=== PATIENT | female | born 1960 | race Caucasian/White ===

== ENCOUNTER 2020-10-09 06:15 | Emergency (ER) | payer OTHER ==
[~2020-10-09] VITALS: Ht 157.5 cm; Wt 92.7 kg
[2020-10-09] MEDS ORDERED: FURO20TA2 (06:32)
[2020-10-09] MEDS ORDERED: PRIM50TA6 (06:32)
[2020-10-09] MEDS ORDERED: TRAM50TA2 (06:32)
[2020-10-09] MEDS ORDERED: MUPI2OI (06:32)
[2020-10-09] MEDS ORDERED: METF-838 (06:32)
[2020-10-09] MEDS ORDERED: LISI2.5T2 (06:32)
[2020-10-09] MEDS ORDERED: PHEN100C (06:32)
[2020-10-09] MEDS ORDERED: LEVO25TA5 (06:32)
[2020-10-09] MEDS ORDERED: GLIM4TAB5 (06:32)
[2020-10-09] MEDS ORDERED: ALEN70TA82 (06:32)
[2020-10-09] MEDS ORDERED: HYDR1CAP25 (06:32)
[2020-10-09] MEDS ORDERED: SERT50TA29 (06:32)
[2020-10-09] MEDS ORDERED: GABA600T4 (06:32)
[2020-10-09] MEDS ORDERED: TRUL0.5I (06:32)
[2020-10-09] MEDS ORDERED: SIMV10TA21 (06:32)
[2020-10-09] MEDS ORDERED: ASPI81TA26 (06:32)
[2020-10-09] MEDS ORDERED: FOLI1TAB11 (06:32)
[2020-10-09] MEDS ORDERED: ONDANSETRON 4MG/2ML VIAL IV ONE (07:30)
[2020-10-09] MEDS ORDERED: NS 1,000 ML IV SCH (07:30)
[2020-10-09] MEDS ORDERED: fentaNYL 100 MCG/2 ML INJECTION (J3010) IV PRN (07:30)
[2020-10-09 08:36] LABS: BASO # 0.1 10^3/uL (0.0-0.2); BASO % 0.4 % (0.0-1.0); EOS % 0.1 % (0.0-3.0); HEMATOCRIT 40.8 % (36.0-47.0); HEMOGLOBIN 13.1 g/dl (12.0-15.5); LYMPH # 3.4 10^3/uL (1.5-5.0); LYMPH % 25.1 % (24.0-44.0); MEAN CORPUSCULAR HEMOGLOBIN 31.2 pg (27.0-33.0); MEAN CORPUSCULAR HGB CONC 32.1 g/dl (32.0-36.5); MEAN CORPUSCULAR VOLUME 97.1 fl (80.0-96.0); MONO % 7.3 % (2.0-8.0); NEUTROPHILS # 9.1 10^3/uL (1.5-8.5); NEUTROPHILS % 66.8 % (36.0-66.0); WHITE BLOOD COUNT 13.7 10^3/uL (4.0-10.0)
[2020-10-09 08:59] LABS: ALBUMIN 3.1 GM/DL (3.2-5.2); ALT/SGPT 26 U/L (12-78); BILIRUBIN,DIRECT < 0.1 MG/DL (0.0-0.2); BILIRUBIN,TOTAL 0.1 MG/DL (0.2-1.0); BLOOD UREA NITROGEN 15 MG/DL (7-18); CALCIUM LEVEL 8.6 MG/DL (8.8-10.2); CARBON DIOXIDE LEVEL 27 MEQ/L (21-32); CHLORIDE LEVEL 106 MEQ/L (98-107); CREATININE FOR GFR 0.72 MG/DL (0.55-1.30); GLOMERULAR FILTRATION RATE > 60.0 (>45); GLUCOSE, FASTING 165 MG/DL (70-100); PHENYTOIN (DILANTIN) 6.6 UG/ML (10.0-20.0); POTASSIUM SERUM 5.4 MEQ/L (3.5-5.1); SODIUM LEVEL 138 MEQ/L (136-145); TOTAL PROTEIN 7.6 GM/DL (6.4-8.2)
[2020-10-09] MEDS ORDERED: ISOVUE-370 76% 100ML VIAL As Ordered ONE (09:10)
--- NOTE | 2020-10-09 09:43 | REP ---
INDICATION: trauma COMPARISON: None TECHNIQUE: Axial contrast enhanced images from the thoracic inlet to the upper abdomen using 100 ml Isovue 370 intravenous contrast material followed by CT of the abdomen and pelvis. Coronal and sagittal reformations obtained. This CT examination was performed using the following dose reduction techniques: Automated exposure control, adjustment of mA and/or kv according to the patient's size, and use of iterative reconstruction technique. FINDINGS: Lung muniz are essentially clear. Trace posterior basilar dependent atelectatic changes are suggested (right greater than left) no pulmonary parenchymal consolidation/contusion, pleural effusion, or pneumothorax. Mediastinum demonstrates normal thoracic aorta, pulmonary vasculature, and heart/pericardium. No evidence for mediastinal injury. No adenopathy. Surrounding musculoskeletal structures are intact and without evidence for injury. IMPRESSION: Normal contrast-enhanced chest CT. No acute mediastinal or pleuroparenchymal process. No evidence for acute trauma/injury. <Electronically signed by Ronny Addison > 10/09/20 0939
--- NOTE | 2020-10-09 09:46 | REP ---
INDICATION: trauma. COMPARISON: None TECHNIQUE: Axial contrast-enhanced images from the lung bases to the pubic symphysis using 100 cc Isovue 370 intravenous contrast material. Coronal and sagittal reformations obtained. This CT examination was performed using the following dose reduction techniques: Automated exposure control, adjustment of mA and/or kv according to the patient's size, and the use of iterative reconstruction technique. FINDINGS: No evidence for solid organ injury. Liver, spleen, pancreas, bilateral adrenal glands and kidneys are essentially normal. Prior cholecystectomy noted. The enteric system including stomach, small, and large bowel appears normal. No evidence for obstruction or acute inflammatory process. Scattered colonic diverticula noted without acute diverticulitis. Pelvis demonstrates normal bladder and age-appropriate uterus/adnexa. No ascites. No free air. No intraperitoneal or retroperitoneal adenopathy. Abdominal aorta and vasculature appear normal. Musculoskeletal structures are intact and without acute osseous abnormality. IMPRESSION: No acute abdominopelvic pathology appreciated. No evidence for acute trauma/injury. <Electronically signed by Ronny Addison > 10/09/20 0958
[2020-10-09 10:57] VITALS: BP 135/94
== END 2020-10-09 11:32 | disposition home or self-care (01) ==
LOC: M ED 06:15
DX: S22.31XA Fracture of one rib, right side, initial encounter for closed fracture (principal); W01.0XXA Fall on same level from slipping, tripping and stumbling without subsequent striking against object, initial encounter; Y92.9 Unspecified place or not applicable; Y93.9 Activity, unspecified; Y99.9 Unspecified external cause status; E11.9 Type 2 diabetes mellitus without complications; I10 Essential (primary) hypertension; Z88.6 Allergy status to analgesic agent; Z88.8 Allergy status to other drugs, medicaments and biological substances; Z79.899 Other long term (current) drug therapy
CPT/HCPCS: 36415; 71260; 74177; 80048; 80076; 80185; 85025; 93041; 94760; 96361; 96374; 96375; 99285; J2405; J3010; Q9967

== ENCOUNTER 2020-10-13 11:48 | Emergency (ER) | payer OTHER ==
[~2020-10-13] VITALS: Ht 157.5 cm; Wt 92.7 kg
[~2020-10-13 11:48] MED LIST: ALEN70TA82; ASPI81TA26; FOLI1TAB11; FURO20TA2; GABA600T4; GLIM4TAB5; HYDR1CAP25; LEVO25TA5; LISI2.5T2; METF-838; MUPI2OI; PHEN100C; PRIM50TA6; SERT50TA29; SIMV10TA21; TRAM50TA2; TRUL0.5I
[2020-10-13] MEDS ORDERED: PERCOCET 5MG/325MG TAB PO ONE ×2 (13:10→17:10)
[2020-10-13 13:42] LABS: BASO # 0.1 10^3/uL (0.0-0.2); BASO % 0.6 % (0.0-1.0); HEMATOCRIT 40.4 % (36.0-47.0); HEMOGLOBIN 12.9 g/dl (12.0-15.5); LYMPH # 2.1 10^3/uL (1.5-5.0); LYMPH % 24.5 % (24.0-44.0); MEAN CORPUSCULAR HEMOGLOBIN 30.4 pg (27.0-33.0); MEAN CORPUSCULAR HGB CONC 31.9 g/dl (32.0-36.5); MEAN CORPUSCULAR VOLUME 95.1 fl (80.0-96.0); MONO # 0.5 10^3/uL (0.0-0.8); MONO % 5.4 % (2.0-8.0); NEUTROPHILS # 5.8 10^3/uL (1.5-8.5); NEUTROPHILS % 69.3 % (36.0-66.0); PLATELET COUNT, AUTOMATED 311 10^3/uL (150-450); RED BLOOD COUNT 4.25 10^6/uL (4.00-5.40); WHITE BLOOD COUNT 8.4 10^3/uL (4.0-10.0)
[2020-10-13 14:00] LABS: ALT/SGPT 25 U/L (12-78); BILIRUBIN,TOTAL 0.1 MG/DL (0.2-1.0); BLOOD UREA NITROGEN 16 MG/DL (7-18); CALCIUM LEVEL 8.7 MG/DL (8.8-10.2); CARBON DIOXIDE LEVEL 28 MEQ/L (21-32); CHLORIDE LEVEL 106 MEQ/L (98-107); CREATININE FOR GFR 0.68 MG/DL (0.55-1.30); GLOMERULAR FILTRATION RATE > 60.0 (>45); GLUCOSE, FASTING 171 MG/DL (70-100); SODIUM LEVEL 138 MEQ/L (136-145); TOTAL PROTEIN 7.7 GM/DL (6.4-8.2)
--- NOTE | 2020-10-13 14:21 | REP ---
INDICATION: fell/pain. COMPARISON: Chest CT dated 10/09/2020. TECHNIQUE: Right ribs four views, PA chest single-view. FINDINGS: On the comparison CT there was a nondisplaced fracture of the right 5th rib anteriorly. This fracture is not demonstrated on plain films today. No other right rib fractures or other abnormalities are identified on the plain films today. PA chest: There is no pneumothorax, hemothorax or pulmonary contusion. Lung muniz are clear. Cardiac size is normal. IMPRESSION: Negative plain film study of the right ribs. The right 5th rib fracture identified the recent CT is not visible on plain films. PA chest is normal. <Electronically signed by Rajat Fraire > 10/13/20 [id number]
--- NOTE | 2020-10-13 15:28 | REP ---
INDICATION: fell/pain. COMPARISON: Chest, abdomen/pelvis CT dated 10/09/2020. TECHNIQUE: Multiple sonographic images of the abdominal right upper quadrant. FINDINGS: The pancreas is obscured by bowel gas. There is a cholecystectomy. There is no intrahepatic or extrahepatic biliary duct dilatation, the common biliary duct measures 2.8 mm in diameter. The hepatic parenchyma is homogeneous. There is no evidence of intrahepatic hematoma. The hepatic parenchyma is echogenic compatible with hepato steatosis. No para hepatic fluid collection is identified. However, a right pleural fluid collection is incidentally identified. The right kidney measures 9.0 x 4.6 x 4.0 cm and is in the low normal size range. There is no right renal calculus or hydronephrosis. There is no right renal solid or cystic mass. No pararenal fluid collection. IMPRESSION: A right pleural effusion is incidentally identified. No evidence of intrahepatic hematoma. The hepatic parenchyma is echogenic compatible with hepato steatosis. The right kidney is in the low normal size range but otherwise unremarkable. There is a cholecystectomy. No right upper quadrant free intraperitoneal fluid. <Electronically signed by Rajat Fraire > 10/13/20 1529
--- NOTE | 2020-10-13 16:19 | REP ---
INDICATION: right rib pain/sob. COMPARISON: Chest CT dated 10/09/2020 and right rib series performed earlier today. TECHNIQUE: Chest CT without IV contrast. FINDINGS: There is a nondisplaced fracture of the right 5th rib anteriorly, similar to the comparison CT. There is a small right pleural fluid collection as an interval change, possibly hemothorax. There is no pneumothorax. There is a pleural-based 8 mm lung nodule posteriorly in the right upper lobe on image 23, not optimally demonstrated on the comparison CT. This is a category 4A lung lesion and follow-up chest CT in 3 months is recommended for further evaluation. PET scan might also be considered. There is a 4 mm right lower lobe lung nodule on image 44. This is getting or a 2 lung nodule and can be followed up CT annually. There is an 8 mm pleural-based right middle lobe lung nodule on image 52. Follow-up chest CT in 3 months is recommended. PET scan might also be considered. There are no other lung nodules or masses. There is no mediastinal lymph node enlargement. Is no axillary lymphadenopathy. Hilar lymph node enlargement is insensitive in the absence of IV contrast. The unenhanced thoracic aorta is unremarkable. Cardiac size normal. There is no pericardial effusion. Upper abdomen:: There is a 12 mm ovoid soft tissue nodule anterior all medial to the dome of the liver within the mesenteric fat, possibly ectopic hepatic tissue. The visualized hepatic parenchyma is otherwise homogeneous and unremarkable. There are surgical clips in the gallbladder fossa. Pancreas and spleen are unremarkable except for splenic calcified granulomas. The adrenals are unremarkable. The visualized renal upper poles are unremarkable. IMPRESSION: There is a new small right pleural fluid collection has an interval change, possibly right hemothorax. Nondisplaced fracture of the right 5th rib anteriorly is again noted, unchanged. There are 3 lung nodules as described. The 2 larger nodules should be followed up by CT in 3 months. Additionally, consider PET scan. The smaller nodule can be followed up annually. Soft tissue nodule in the abdomen anterolateral to the hepatic dome may represent ectopic hepatic tissue. <Electronically signed by Rajat Fraire > 10/13/20 [id number]
[2020-10-13] MEDS ORDERED: PERC5TAB12 PO (17:24)
[2020-10-13 17:38] VITALS: BP 123/61
--- NOTE | 2020-10-16 19:24 | ED PDOC ---
Post-Departure Follow-Up ct chest [facility]ed [facility]dr slaughter for fu Omkar East MD Oct 16, 2020 19:24
== END 2020-10-13 17:52 | disposition home or self-care (01) ==
LOC: EDBD 11:48 → M ED 11:48
DX: S22.31XA Fracture of one rib, right side, initial encounter for closed fracture (principal); J94.2 Hemothorax; W19.XXXA Unspecified fall, initial encounter; Y92.9 Unspecified place or not applicable; Y93.9 Activity, unspecified; Y99.9 Unspecified external cause status; R91.8 Other nonspecific abnormal finding of lung field; J90 Pleural effusion, not elsewhere classified; K76.0 Fatty (change of) liver, not elsewhere classified; E11.21 Type 2 diabetes mellitus with diabetic nephropathy; K21.9 Gastro-esophageal reflux disease without esophagitis; E03.9 Hypothyroidism, unspecified; E78.5 Hyperlipidemia, unspecified; R51.9 Headache, unspecified; R56.9 Unspecified convulsions; F41.9 Anxiety disorder, unspecified; F33.9 Major depressive disorder, recurrent, unspecified; Z88.8 Allergy status to other drugs, medicaments and biological substances; Z79.899 Other long term (current) drug therapy; Z79.82 Long term (current) use of aspirin; Z79.84 Long term (current) use of oral hypoglycemic drugs

== ENCOUNTER → 2021-01-20 | Outpatient (CLI) | payer OTHER ==
[~2021-01-20] MED LIST changes: +PERC5TAB12 PO
[2021-01-20 13:26] LABS: BASO % 0.5 % (0.0-1.0); HEMATOCRIT 39.4 % (36.0-47.0); HEMOGLOBIN 12.6 g/dl (12.0-15.5); LYMPH # 2.9 10^3/uL (1.5-5.0); LYMPH % 35.5 % (24.0-44.0); MEAN CORPUSCULAR HEMOGLOBIN 30.8 pg (27.0-33.0); MEAN CORPUSCULAR VOLUME 96.3 fl (80.0-96.0); MONO # 0.6 10^3/uL (0.0-0.8); MONO % 7.7 % (2.0-8.0); NEUTROPHILS # 4.5 10^3/uL (1.5-8.5); NEUTROPHILS % 55.9 % (36.0-66.0); PLATELET COUNT, AUTOMATED 294 10^3/uL (150-450); RED BLOOD COUNT 4.09 10^6/uL (4.00-5.40)
[2021-01-20 14:01] LABS: ALBUMIN 3.4 GM/DL (3.2-5.2); ALT/SGPT 57 U/L (12-78); BILIRUBIN,TOTAL 0.2 MG/DL (0.2-1.0); BLOOD UREA NITROGEN 29 MG/DL (7-18); CALCIUM LEVEL 8.4 MG/DL (8.8-10.2); CARBON DIOXIDE LEVEL 28 MEQ/L (21-32); CHLORIDE LEVEL 105 MEQ/L (98-107); CHOLESTEROL LEVEL 182 MG/DL (<200); CHOLESTEROL RISK RATIO 2.192 (<5); CREATININE FOR GFR 0.82 MG/DL (0.55-1.30); GLOMERULAR FILTRATION RATE > 60.0 (>45); GLUCOSE, FASTING 159 MG/DL (70-100); HDL CHOLESTEROL 83 MG/DL (>40); LDL CHOLESTEROL 72 MG/DL (<100); NON-HDL-C 99 MG/DL; POTASSIUM SERUM 4.9 MEQ/L (3.5-5.1); SODIUM LEVEL 137 MEQ/L (136-145); TOTAL PROTEIN 7.8 GM/DL (6.4-8.2); TRIGLYCERIDES LEVEL 137 MG/DL (<150)
[2021-01-20 14:03] LABS: HEMOGLOBIN A1c 7.3 %
[2021-01-20 14:12] LABS: CREATININE, URINE 67.2 MG/DL; MALB URINE SIEMENS 12.2 MG/L; MAU/CREAT RATIO 18.1 MCG/MG (0.0-30.0)
== END ==
LOC: M PLALAB 11:08
PROVIDERS: ATTEND Student in an Organized Health Care Education/Training Program
DX: E11.69 Type 2 diabetes mellitus with other specified complication (principal); R56.9 Unspecified convulsions

== ENCOUNTER → 2021-04-11 | Outpatient (CLI) | payer OTHER ==
[~2021-04-11] MED LIST changes: -LISI2.5T2; +LISI2.5T9
--- NOTE | 2021-04-11 15:13 | DEXAMM ---
INDICATION: OSTEOPOROSIS UNSPEC. COMPARISON: None. TECHNIQUE: Bone density was measured using dual-energy x-ray absorptionmetry (DEXA). FINDINGS: AP SPINE L1-L4 BMD 1.006 g/cm2 Young Adult T-Score -1.5 Age Matched Z-Score -0.2. LT FEMUR, TOTAL BMD 0.612 g/cm2 Young Adult T-Score -3.1 Age Matched Z-Score -2.1. LT NECK BMD 0.583 g/cm2 Young Adult T-Score -3.3 Age Matched Z-Score -2.0. RT FEMUR, TOTAL BMD 0.701 g/cm2 Young Adult T-Score -2.4 Age Matched Z-Score -1.4. RT NECK BMD 0.611 g/cm2 Young Adult T-Score -3.1 Age Matched Z-Score -1.8. IMPRESSION: There is low bone density of the spine. There is osteoporosis of the left hip. There is osteoporosis of the right hip. FOLLOW-UP: Recommendation for the next bone density exam: 2 years. <Electronically signed by Azeem Coker > 04/11/21 0760
== END ==
LOC: M WHC 13:26
PROVIDERS: ATTEND Student in an Organized Health Care Education/Training Program
DX: M81.0 Age-related osteoporosis without current pathological fracture (principal)

== ENCOUNTER → 2021-04-28 | Outpatient (CLI) | payer OTHER ==
--- NOTE | 2021-04-28 10:24 | REP ---
INDICATION: INCIDENTAL LUNG NODULE COMPARISON: 10/14/2019 TECHNIQUE: Axial noncontrast images from the thoracic inlet to the upper abdomen with coronal and sagittal reformations. This CT examination was performed using the following dose reduction techniques: Automated exposure control, adjustment of mA and/or kv according to the patient's size, and use of iterative reconstruction technique. FINDINGS: Current evaluation demonstrates resolution of the right pleural effusion and healed right rib fracture. New findings include subtle scattered areas of patchy airspace disease (right greater than left) which are suspicious for an acute or resolving inflammatory process. The small subpleural nodule in the posterior aspect of the right upper lobe (image 22) remains stable while the smaller nodule within the periphery of the right lower lobe and subpleural anterior right upper lobe may be slightly obscured by adjacent patchy opacity or have resolved. A new 4 mm non solid density is also identified in the right apex (image 16). Correlation with physical examination and short-term follow-up to re-evaluation is suggested given the acute findings. Mediastinum is relatively normal/stable and small nonspecific mediastinal/right hilar lymph nodes are again identified. Thoracic aorta, pulmonary vasculature, and heart/pericardium are relatively normal for age. No cardiomegaly or pericardial effusion. Tracheobronchial tree is patent. Surrounding musculoskeletal structures are intact. IMPRESSION: 1. Current examination demonstrates very small patchy scattered opacities suspicious for an acute or resolving inflammatory process possibly obscuring 2 of the previously noted small nodules. There also appears to be a new 4 mm non solid nodular density in the right apex. Short-term 6 month follow-up examination is recommended. <Electronically signed by Ronny Addison > 04/28/21 [id number]
== END ==
LOC: M RAD 09:23
PROVIDERS: ATTEND Student in an Organized Health Care Education/Training Program
DX: R91.1 Solitary pulmonary nodule (principal)

== ENCOUNTER 2021-08-13 01:20 | Emergency (ER) | payer OTHER ==
[~2021-08-13] VITALS: Ht 157.5 cm; Wt 97.3 kg
[2021-08-13] MEDS ORDERED: ATOR1TAB19 PO (01:33)
[2021-08-13 04:57] VITALS: BP 114/63
== END 2021-08-13 04:58 | disposition home or self-care (01) ==
LOC: M ED 01:20
DX: S70.00XA Contusion of unspecified hip, initial encounter (principal); E11.9 Type 2 diabetes mellitus without complications; I10 Essential (primary) hypertension; E78.5 Hyperlipidemia, unspecified; Z88.5 Allergy status to narcotic agent; Z79.84 Long term (current) use of oral hypoglycemic drugs; W01.0XXA Fall on same level from slipping, tripping and stumbling without subsequent striking against object, initial encounter; Y92.009 Unspecified place in unspecified non-institutional (private) residence as the place of occurrence of the external cause; Y93.9 Activity, unspecified; Y99.9 Unspecified external cause status

== ENCOUNTER → 2021-08-15 | Outpatient (REF) | payer OTHER ==
[~2021-08-15] MED LIST changes: +ATOR1TAB19 PO
== END ==
LOC: M SFHCPLAZ 10:54
PROVIDERS: ATTEND Family Medicine
DX: Z53.9 Procedure and treatment not carried out, unspecified reason (principal)

== ENCOUNTER → 2021-08-15 | Outpatient (CLI) | payer OTHER ==
[2021-08-15 13:21] LABS: HEMOGLOBIN A1c 7.3 %
[2021-08-15 13:35] LABS: CALCIUM LEVEL 8.6 MG/DL (8.8-10.2); CREATININE FOR GFR 1.03 MG/DL (0.55-1.30); GLOMERULAR FILTRATION RATE 57.8 (>45); POTASSIUM SERUM 4.9 MEQ/L (3.5-5.1)
[2021-08-15 13:53] LABS: MALB URINE SIEMENS 63.4 MG/L; MAU/CREAT RATIO 24.5 MCG/MG (0.0-30.0)
== END ==
LOC: M PLALAB 11:03
PROVIDERS: ATTEND Family Medicine
DX: E11.69 Type 2 diabetes mellitus with other specified complication (principal)

== ENCOUNTER → 2021-08-20 | Outpatient (CLI) | payer OTHER | LOC: M PLAIMG 13:07 | PROVIDERS: ATTEND Internal Medicine Pulmonary Disease | DX: R91.8 Other nonspecific abnormal finding of lung field (principal) ==

== ENCOUNTER → 2021-09-16 | Outpatient (CLI) | payer OTHER ==
[2021-09-16 17:57] LABS: BLOOD UREA NITROGEN 15 MG/DL (7-18); CALCIUM LEVEL 9.7 MG/DL (8.8-10.2); CARBON DIOXIDE LEVEL 27 MEQ/L (21-32); CHLORIDE LEVEL 104 MEQ/L (98-107); CREATININE FOR GFR 0.95 MG/DL (0.55-1.30); GLOMERULAR FILTRATION RATE > 60.0 (>45); GLUCOSE, FASTING 190 MG/DL (70-100); MAGNESIUM LEVEL 1.4 MG/DL (1.8-2.4); PHOSPHORUS LEVEL 3.8 MG/DL (2.5-4.9); POTASSIUM SERUM 5.2 MEQ/L (3.5-5.1); SODIUM LEVEL 136 MEQ/L (136-145)
== END ==
LOC: M PLALAB 13:36
PROVIDERS: ATTEND Student in an Organized Health Care Education/Training Program
DX: N17.9 Acute kidney failure, unspecified (principal)

== ENCOUNTER → 2021-12-12 | Outpatient (CLI) | payer OTHER ==
[2021-12-12 18:39] LABS: ALBUMIN 3.4 GM/DL (3.2-5.2); ALT/SGPT 39 U/L (12-78); BILIRUBIN,TOTAL 0.2 MG/DL (0.2-1.0); BLOOD UREA NITROGEN 20 MG/DL (7-18); CALCIUM LEVEL 9.4 MG/DL (8.8-10.2); CARBON DIOXIDE LEVEL 28 MEQ/L (21-32); CHLORIDE LEVEL 105 MEQ/L (98-107); CREATININE FOR GFR 0.96 MG/DL (0.55-1.30); GLOMERULAR FILTRATION RATE > 60.0 (>45); GLUCOSE, FASTING 145 MG/DL (70-100); SODIUM LEVEL 139 MEQ/L (136-145); TOTAL PROTEIN 8.2 GM/DL (6.4-8.2)
[2021-12-12 18:51] LABS: MALB URINE SIEMENS 83.4 MG/L; MAU/CREAT RATIO 26.9 MCG/MG (0.0-30.0)
[2021-12-12 18:56] LABS: HEMOGLOBIN A1c 8.1 %
== END ==
LOC: M PLALAB 14:43
PROVIDERS: ATTEND Student in an Organized Health Care Education/Training Program
DX: E11.69 Type 2 diabetes mellitus with other specified complication (principal)

== ENCOUNTER → 2022-10-23 | Outpatient (CLI) | payer OTHER | LOC: M PLAIMG 13:21 | PROVIDERS: ATTEND Nurse Practitioner Adult Health | DX: R91.8 Other nonspecific abnormal finding of lung field (principal); Z90.49 Acquired absence of other specified parts of digestive tract ==

== ENCOUNTER → 2022-10-23 | Outpatient (CLI) | payer OTHER ==
[2022-10-23 15:52] LABS: PHENYTOIN (DILANTIN) 12.2 UG/ML (10.0-20.0)
[2022-10-23 15:54] LABS: ALBUMIN 3.5 G/DL (3.2-5.2); ALKALINE PHOSPHATASE 114 U/L (46-116); ALT/SGPT 90 U/L (7.0-40); AST/SGOT 64 U/L (<34); BILIRUBIN,DIRECT 0.1 MG/DL (<0.4); BILIRUBIN,TOTAL 0.2 MG/DL (0.3-1.2); BLOOD UREA NITROGEN 26 MG/DL (9-23); CALCIUM LEVEL 9.1 MG/DL (8.3-10.6); CARBON DIOXIDE LEVEL 28 MMOL/L (20-31); CHLORIDE LEVEL 106 MMOL/L (98-107); CREATININE FOR GFR 0.87 MG/DL (0.55-1.30); GLOMERULAR FILTRATION RATE > 60.0 (>45); GLUCOSE, FASTING 125 MG/DL (74-106); POTASSIUM SERUM 5.4 MMOL/L (3.5-5.1); SODIUM LEVEL 140 MMOL/L (136-145); TOTAL PROTEIN 7.8 G/DL (5.7-8.2)
[2022-10-23 15:56] LABS: THYROID STIMULATING HORMONE 2.108 uIU/ML (0.55-4.78)
== END ==
LOC: M PLALAB 13:19
PROVIDERS: ATTEND Psychiatry & Neurology Neurology
DX: G40.309 Generalized idiopathic epilepsy and epileptic syndromes, not intractable, without status epilepticus (principal); E03.9 Hypothyroidism, unspecified

== ENCOUNTER 2022-11-21 15:22 | Emergency (ER) | payer OTHER ==
[~2022-11-21] VITALS: Ht 157.5 cm; Wt 90.5 kg
[2022-11-21] MEDS ORDERED: MUPI2OI TOP (15:49)
[2022-11-21] MEDS ORDERED: CEPH500C PO (15:49)
[2022-11-21] MEDS ORDERED: HYDROCORTISONE 1% OINTMENT 30GM TOP STA (16:31)
[2022-11-21 17:12] LABS: BASO # 0.1 10^3/uL (0.0-0.2); BASO % 0.6 % (0.0-1.0); HEMATOCRIT 38.2 % (36.0-47.0); HEMOGLOBIN 12.7 g/dl (12.0-15.5); LYMPH # 2.8 10^3/uL (1.5-5.0); LYMPH % 35.9 % (24.0-44.0); MEAN CORPUSCULAR HEMOGLOBIN 31.6 pg (27.0-33.0); MEAN CORPUSCULAR HGB CONC 33.2 g/dl (32.0-36.5); MONO # 0.7 10^3/uL (0.0-0.8); MONO % 8.2 % (2.0-8.0); NEUTROPHILS # 4.3 10^3/uL (1.5-8.5); NEUTROPHILS % 54.3 % (36.0-66.0); PLATELET COUNT, AUTOMATED 252 10^3/uL (150-450); RED BLOOD COUNT 4.02 10^6/uL (4.00-5.40); WHITE BLOOD COUNT 7.9 10^3/uL (4.0-10.0)
[2022-11-21 17:38] LABS: ERYTHROCYTE SEDIMENTATION RATE 27 mm/hr (0-30)
[2022-11-21] MEDS ORDERED: PATIROMER SORBITEX CALCIUM 8.4 GM POWDER PACKET (VELTASSA) PO ONE (19:10)
[2022-11-21] MEDS ORDERED: HYDR1CRE30 TOP (19:14)
[2022-11-21] MEDS ORDERED: VELT1POW PO (19:14)
[2022-11-21 19:26] VITALS: BP 116/68
== END 2022-11-21 19:39 | disposition home or self-care (01) ==
LOC: M ED 15:22
DX: L29.9 Pruritus, unspecified (principal); E87.5 Hyperkalemia; E11.9 Type 2 diabetes mellitus without complications; I10 Essential (primary) hypertension; E78.5 Hyperlipidemia, unspecified; G40.909 Epilepsy, unspecified, not intractable, without status epilepticus; K21.9 Gastro-esophageal reflux disease without esophagitis; Z88.5 Allergy status to narcotic agent; Z88.6 Allergy status to analgesic agent; Z88.8 Allergy status to other drugs, medicaments and biological substances; Z79.4 Long term (current) use of insulin; Z79.811 Long term (current) use of aromatase inhibitors; Z79.82 Long term (current) use of aspirin; Z79.02 Long term (current) use of antithrombotics/antiplatelets; Z79.899 Other long term (current) drug therapy

== ENCOUNTER 2022-12-11 12:56 | Emergency (ER) | payer OTHER ==
[~2022-12-11] VITALS: Ht 157.5 cm; Wt 90.1 kg
[~2022-12-11 12:56] MED LIST changes: +CEPH500C PO; +HYDR1CRE30 TOP; +MUPI2OI TOP; +VELT1POW PO
[2022-12-11] MEDS ORDERED: HYDR50TA70 PO (15:07)
[2022-12-11] MEDS ORDERED: hydrOXYzine 50 MG TAB PO STA (15:09)
[2022-12-11 15:43] VITALS: BP 106/60
== END 2022-12-11 16:05 | disposition home or self-care (01) ==
LOC: M ED 12:56
DX: R21 Rash and other nonspecific skin eruption (principal); E11.9 Type 2 diabetes mellitus without complications; I10 Essential (primary) hypertension; E78.5 Hyperlipidemia, unspecified; G40.909 Epilepsy, unspecified, not intractable, without status epilepticus; E03.9 Hypothyroidism, unspecified; Z88.5 Allergy status to narcotic agent; Z88.8 Allergy status to other drugs, medicaments and biological substances; Z79.02 Long term (current) use of antithrombotics/antiplatelets; Z79.811 Long term (current) use of aromatase inhibitors; Z79.899 Other long term (current) drug therapy